=== PATIENT | female | born 1995 | race Caucasian/White ===

== ENCOUNTER 2023-08-09 08:28 | Emergency (ER) | payer OTHER ==
[2023-08-09 08:43] VITALS: TEMP 98.4
[2023-08-09] MEDS ORDERED: BABY ASPIRIN 81 MG CHEW PO ONE (09:05)
[2023-08-09] MEDS ORDERED: TORAdol 30 mg Injection IV ONE (09:06)
[2023-08-09 09:15] LABS: Absolute Neutrophil Ct (ANC) 6.03 x10^3/uL (1.4-6.9); BASOPHIL % 0.4 % (0.0-0.4); Basophil (Absolute #) 0.04 x10^3/uL (0-0.4); Eosinophil % 4.5 % (0.00-5.0); Eosinophil (Absolute #) 0.44 x10^3/uL (0-0.5); Hematocrit 46.2 % (35-47); Hemoglobin 14.9 g/dL (12.0-16.0); IMMATURE GRAN # 0.04 x10^3u/L (0.00-0.03); IMMATURE GRAN % 0.4 % (0.00-0.4); Lymphocyte (Absolute #) 2.64 x10^3/uL (1.0-4.6); Lymphocytes % 26.9 % (24.0-44.0); Mean Corpuscular Hemoglobin 29.7 pg (26-32); Mean Corpuscular Hgb Concent. 32.3 g/dL (32-36); Mean Platelet Volume 8.9 fL (7.5-11.0); Monocyte (Absolute #) 0.64 x10^3/uL (0.0-1.3); Monocytes % 6.5 % (0.0-12.0); Neutrophil % 61.3 % (36.0-66.0); Platelet Count 293 x10^3/uL (150-450); Red Blood Count 5.02 x10^6/uL (4.1-5.4); White Blood Count 9.8 x10^3/uL (4.0-10.5)
--- NOTE | 2023-08-09 09:20 | XRAY ---
Indication: Chest pain. Comparison: June 28, 2009 Portable chest again demonstrates normal heart, lungs, and bony thorax.
[2023-08-09 09:22] LABS: HCG URINE TEST NEGATIVE (NEGATIVE)
[2023-08-09] MEDS ORDERED: BABY ASPIRIN 81 MG CHEW ONE (09:23)
[2023-08-09] MEDS ORDERED: TORAdol 30 mg Injection ONE (09:23)
[2023-08-09 09:32] LABS: ALBUMIN 4.3 g/dL (3.5-5.0); ANION GAP 13.6 MEQ/L (5-15); BILIRUBIN,TOTAL 0.3 mg/dL (0.2-1.3); Calcium 9.5 mg/dL (8.4-10.2); Creatinine 1 0.91 mg/dL (0.52-1.04); Potassium 4.5 mmol/L (3.5-5.1); Total Protein 7.6 g/dL (6.3-8.2)
[2023-08-09 09:45] LABS: NT PRO BNPII < 20.0 pg/mL (<300); TROPONIN < 0.012 ng/mL (0.000-0.034)
--- NOTE | 2023-08-09 12:55 | ERPHSYRPT ---
- History of Present Illness Time Seen by Provider: 08/09/23 08:33 Historian: patient Exam Limitations: no limitations Patient Subjective Stated Complaint: Chest pain Triage Nursing Assessment: Patient ambulated back to ED and transferred self to bed. Patient A+O X3. Patient's skin pink, warm and dry. Patient complains of chest pain that woke her up out of sleep at 0300 that caused her nausea. Patient states pain starts under left breast goes into mid chest and goes into neck, right shoulder and back 9/10. Patient states the pain is like occasional "small shocks" to chest that causes her to hold her breath. Lungs clear A/P darling. Physician History: 28 years old female presented in the ER with chief complaint of chest pain off and on since 3 AM. Patient reports she feels electric shock from right side of sternum to the right shoulder and sometimes at the right upper back. It comes and goes without any difficulty breathing or palpitations. Last for few seconds and improves on its own. No history of coronary artery disease. Denies any lower extremity swelling. No history of DVT/PEs. Denies any significant aggravating or relieving factors. Reports generalized soreness and tenderness of right anterior posterior chest wall. Denies any rash. Prior Chest Pain/Cardiac Workup: no prior chest pain Nitro Today/Relief: no nitro taken today Aspirin Treatment Today: no aspirin today Allergies/Adverse Reactions: No Known Drug Allergies Allergy (Unverified 08/09/23 08:31) Home Medications: Dextroamphetamine/Amphetamine [Adderall Xr 20 mg Capsule] 1 cap PO DAILY 08/09/23 [History] Hx Influenza Vaccination/Date Given: No Hx Pneumococcal Vaccination/Date Given: No Immunizations Up to Date: Yes Travel Risk - International Travel Have you traveled outside of the country in past 3 weeks: No - Coronavirus Screening Are you exhibiting any of the following symptoms?: No Symptoms: Shortness of Breath - Vaccine Status Have you recieved a Covid-19 vaccination: No - Review of Systems Constitutional: No Symptoms Eyes: No Symptoms Ears, Nose, & Throat: No Symptoms Respiratory: No Symptoms Cardiac: Chest Pain Abdominal/Gastrointestinal: No Symptoms Genitourinary Symptoms: No Symptoms Musculoskeletal: No Symptoms Skin: No Symptoms Neurological: No Symptoms Psychological: No Symptoms Hematologic/Lymphatic: No Symptoms Immunological/Allergic: No Symptoms - Past Medical History Pertinent Past Medical History: Yes Neurological History: No Pertinent History ENT History: No Pertinent History Cardiac History: No Pertinent History Respiratory History: No Pertinent History Endocrine Medical History: No Pertinent History Musculoskeletal History: No Pertinent History GI Medical History: No Pertinent History History: No Pertinent History Psycho-Social History: Other Female Reproductive Disorders: No Pertinent History Other Medical History: ADHD - Past Surgical History Past Surgical History: No Neuro Surgical History: No Pertinent History Cardiac: No Pertinent History Respiratory: No Pertinent History Gastrointestinal: No Pertinent History Genitourinary: No Pertinent History Musculoskeletal: No Pertinent History Female Surgical History: No Pertinent History - Social History Smoking Status: Current every day smoker Exposure to second hand smoke: No Drug Use: none Patient Lives Alone: No - Female History Hx Last Menstrual Period: two days ago Hx Now: (unkn) - Nursing Vital Signs Nursing Vital Signs: Initial Vital Signs Pulse Rate 92 H 08/09/23 08:32 Respiratory Rate 13 08/09/23 08:32 Blood Pressure 128/91 08/09/23 08:32 O2 Sat by Pulse Oximetry 93 L 08/09/23 08:32 Pain Scale Pain Intensity 6 - Physical Exam General Appearance: no apparent distress, alert Eye Exam: PERRL/EOMI Ears, Nose, Throat Exam: normal ENT inspection Neck Exam: normal inspection, non-tender, supple, full range of motion Respiratory Exam: normal breath sounds, chest tenderness (Minimal tenderness in the right upper back chest wall and right upper anterior chest wall with no rash. Mild increased hypersensitivity), lungs clear Cardiovascular Exam: regular rate/rhythm, normal heart sounds Gastrointestinal/Abdomen Exam: soft, normal bowel sounds, No tenderness Extremity Exam: normal inspection, normal range of motion Neurologic Exam: alert, oriented x 3, cooperative Skin Exam: normal color SpO2 Interpretation: normal SpO2: 97 O2 Delivery: Room Air - Course EKG Interpreted by Me: RATE, Sinus Rhythm, NORMAL AXIS, NORMAL INTERVALS, NORMAL QRS Ordered Tests: Medication Summary Discontinued Medications Generic Name Dose Route Start Last Admin Trade Name Freq PRN Reason Stop Dose Admin Aspirin 324 mg 08/09/23 09:05 08/09/23 09:24 Aspirin 81 Mg Tab.Chew PO 08/09/23 09:06 324 mg STAT ONE Administration Aspirin Confirm 08/09/23 09:23 Aspirin 81 Mg Tab.Chew Administered 08/09/23 09:24 Dose 324 mg .ROUTE .STK-MED ONE Ketorolac Tromethamine 30 mg 08/09/23 09:06 08/09/23 09:24 Ketorolac Tromethamine 30 Mg/Ml Inj IV 08/09/23 09:07 30 mg STAT ONE Administration Ketorolac Tromethamine Confirm 08/09/23 09:23 Ketorolac Tromethamine 30 Mg/Ml Inj Administered 08/09/23 09:24 Dose 30 mg .ROUTE .STK-MED ONE Lab/Rad Data: Laboratory Result Diagrams 08/09/23 09:00 08/09/23 09:00 Laboratory Results 08/09/23 08/09/23 08/09/23 Range/Units 12:24 09:00 09:00 WBC (4.0-10.5) x10^3/uL RBC (4.1-5.4) x10^6/uL Hgb (12.0-16.0) g/dL Hct (35-47) % MCV (78-100) fL MCH (26-32) pg MCHC (32-36) g/dL RDW (11.5-14.0) % Plt Count (150-450) x10^3/uL MPV (7.5-11.0) fL Gran % (36.0-66.0) % Immature Gran % (Auto) (0.00-0.4) % Nucleat RBC Rel Count (0.00-0.1) % Eos # (Auto) (0-0.5) x10^3/uL Immature Gran # (Auto) (0.00-0.03) x10^3u/L Absolute Lymphs (auto) (1.0-4.6) x10^3/uL Absolute Monos (auto) (0.0-1.3) x10^3/uL Absolute Nucleated RBC (0.00-0.01) x10^3u/L Lymphocytes % (24.0-44.0) % Monocytes % (0.0-12.0) % Eosinophils % (0.00-5.0) % Basophils % (0.0-0.4) % Absolute Granulocytes (1.4-6.9) x10^3/uL Basophils # (0-0.4) x10^3/uL D-Dimer (0.0-0.50) mg/L Sodium (137-145) mmol/L Potassium (3.5-5.1) mmol/L Chloride (98-107) mmol/L Carbon Dioxide (22-30) mmol/L Anion Gap (5-15) MEQ/L BUN (7-17) mg/dL Creatinine (0.52-1.04) mg/dL Estimated GFR ML/MIN Glucose (74-106) mg/dL Calcium (8.4-10.2) mg/dL Total Bilirubin (0.2-1.3) mg/dL AST (14-36) U/L ALT (0-35) U/L Alkaline Phosphatase (38-126) U/L Creatine Kinase (30-135) U/L Troponin I < 0.012 < 0.012 (0.000-0.034) ng/mL NT-Pro-B Natriuret Pep < 20.0 (<300) pg/mL Serum Total Protein (6.3-8.2) g/dL Albumin (3.5-5.0) g/dL Urine HCG, Qual NEGATIVE (NEGATIVE) 08/09/23 08/09/23 08/09/23 Range/Units 09:00 09:00 09:00 WBC 9.8 (4.0-10.5) x10^3/uL RBC 5.02 (4.1-5.4) x10^6/uL Hgb 14.9 (12.0-16.0) g/dL Hct 46.2 (35-47) % MCV 92.0 (78-100) fL MCH 29.7 (26-32) pg MCHC 32.3 (32-36) g/dL RDW 13.0 (11.5-14.0) % Plt Count 293 (150-450) x10^3/uL MPV 8.9 (7.5-11.0) fL Gran % 61.3 (36.0-66.0) % Immature Gran % (Auto) 0.4 (0.00-0.4) % Nucleat RBC Rel Count 0.0 (0.00-0.1) % Eos # (Auto) 0.44 (0-0.5) x10^3/uL Immature Gran # (Auto) 0.04 H (0.00-0.03) x10^3u/L Absolute Lymphs (auto) 2.64 (1.0-4.6) x10^3/uL Absolute Monos (auto) 0.64 (0.0-1.3) x10^3/uL Absolute Nucleated RBC 0.00 (0.00-0.01) x10^3u/L Lymphocytes % 26.9 (24.0-44.0) % Monocytes % 6.5 (0.0-12.0) % Eosinophils % 4.5 (0.00-5.0) % Basophils % 0.4 (0.0-0.4) % Absolute Granulocytes 6.03 (1.4-6.9) x10^3/uL Basophils # 0.04 (0-0.4) x10^3/uL D-Dimer < 0.19 (0.0-0.50) mg/L Sodium 141 (137-145) mmol/L Potassium 4.5 (3.5-5.1) mmol/L Chloride 107 (98-107) mmol/L Carbon Dioxide 25 (22-30) mmol/L Anion Gap 13.6 (5-15) MEQ/L BUN 20 H (7-17) mg/dL Creatinine 0.91 (0.52-1.04) mg/dL Estimated GFR 87.0 ML/MIN Glucose 98 (74-106) mg/dL Calcium 9.5 (8.4-10.2) mg/dL Total Bilirubin 0.30 (0.2-1.3) mg/dL AST 21 (14-36) U/L ALT 20 (0-35) U/L Alkaline Phosphatase 91 (38-126) U/L Creatine Kinase 112 (30-135) U/L Troponin I (0.000-0.034) ng/mL NT-Pro-B Natriuret Pep (<300) pg/mL Serum Total Protein 7.6 (6.3-8.2) g/dL Albumin 4.3 (3.5-5.0) g/dL Urine HCG, Qual (NEGATIVE) - Progress Progress: improved, re-examined Air Movement: good Progress Note: 08/09/23 14:02 28 years old is evaluated for right-sided intermittent chest pain without palpitations or shortness of breath. EKG is normal sinus rhythm with no acute ST elevations. Negative chest x-ray. She is given Toradol, on reevaluation she is feeling much better. I did not appreciate any shingle rash, this could be prodromal symptoms for shingles but I would hold off on treatment until we have a rash. I have obtained 2 sets of troponins which are negative. Lab work fairly unremarkable otherwise. Patient does not have some reproducibility with palpation in the anterior posterior chest wall. I do not think it is cardiac, low heart score. She has negative D-dimers. She is recommended to take Tylenol ibuprofen and outpatient follow-up. Discussed signs symptoms of worsening needing return to ER which she seems understanding. 08/09/23 14:00 Blood Culture(s) Obtained: No Antibiotics given: No Counseled pt/family regarding: lab results, diagnosis, need for follow-up, rad results Medical Desision Making - Diagnostic Testing Diagnostic test were ordered, analyzed, and reviewed by me: Yes Radiological Interpretation: Reviewed by me - Risk of complications The pt has a mod risk of morbidity or mortality based on: Need for prescription drug management - Departure Departure Disposition: Home Clinical Impression: Atypical chest pain Condition: Stable Critical Care Time: No Referrals: ROSALBA WITT NP [Primary Care Provider] - Follow up with PCP 1 day Instructions: Angina (DC) Additional Instructions: Take Tylenol/ibuprofen as needed. Follow-up with primary care for reevaluation. Return to ER for worsening chest pain or if having palpitations/shortness of breath etc. Prescriptions: Ibuprofen 600 mg PO Q6HPRN PRN 10 Days #20 tablet PRN Reason: Pain
[2023-08-09 14:17] VITALS: BP 102/55; PULSE 76; RESP 15
[2023-08-11 12:48] VITALS: O2SAT 97
== END 2023-08-09 14:24 | disposition home or self-care (01) ==
LOC: ED 08:28
DX: R07.89 Other chest pain (principal); Z79.899 Other long term (current) drug therapy; Z28.310 Unvaccinated for COVID-19; Z72.0 Tobacco use
CPT/HCPCS: 36000; 36415; 71045; 80053; 81025; 82550; 83880; 84484; 85025; 85379; 93005; 93041; 96374; 99284; J1885; A9270-GY